=== PATIENT | female | born 1995 | race African-American/Black ===

== ENCOUNTER 2023-10-31 23:33 | Inpatient (IN) ==
[2023-11-01] MEDS ORDERED: Buffered Lidocaine 1% SYRIN 1 ml INTRADERM ONE (00:56)
[2023-11-01] MEDS ORDERED: Lactated Ringers 1000 ml BAG 1,000 ML IV ONE (00:56)
[2023-11-01] MEDS ORDERED: Lidocaine 1% VIAL 10 MG/ML 30 ML VIAL INJ PRN (00:56)
[2023-11-01] MEDS ORDERED: Lactated Ringers 1000 ml BAG 1,000 ML IV SCH ×2 (01:00→02:00)
[2023-11-01] MEDS ORDERED: Glycerin ADULT 2.4 gm SUPP PR PRN (01:05)
[2023-11-01 05:35] LABS: Urine Benzodiazepine Screen None Detected (None Detect); Urine Cannabinoids Screen None Detected (None Detect); Urine Opiates Screen None Detected (None Detect)
[2023-11-01] MEDS: Witch Hazel PAD JAR TOPICAL PRN (11:36)
[2023-11-01] MEDS: Dibucaine 1% OINT 28.35 GM TUBE PR PRN (11:36)
[2023-11-02 06:43] LABS: ABS Eosinophils 0.2 10^3/uL (0.0-0.5); ABS Lymphocytes 2.7 10^3/uL (1.0-4.8); ABS Monocytes 0.7 10^3/uL (0.0-0.9); ABS Neutrophils 7.5 10^3/uL (1.5-7.6); Eosinophil % 1.6 %; Hematocrit 26.8 % (35-45); Hemoglobin 9.3 g/dL (11.5-14.3); Lymphocyte % 24.2 %; Mean Corpuscular Hemoglobin 30.4 pg (27-33); Mean Corpuscular Hgb Conc 34.5 g/dL (31-36); Mean Platelet Volume 7.8 fL (7.5-11.2); Platelet Count 268 10^3/uL (150-450); Red Blood Count 3.05 10^6/uL (3.63-4.92); White Blood Count 11.1 10^3/uL (3.8-11.8)
[2023-11-02] MEDS: Oxytocin 10 UNITS/ML 1 ML VIAL IM ONE (06:49)
[2023-11-02] MEDS: Methylergonovine 0.2 mg AMPULE 1 ml AMP IM ONE (06:50)
[2023-11-02 07:58] VITALS: BP 140/63
== END 2023-11-02 10:18 | disposition home or self-care (01) | DRG 807 ==
LOC: MCHOBOUT 23:33 → MCHOB 11-01 00:01
PROVIDERS: ADMIT Advanced Practice Midwife; ATTEND Advanced Practice Midwife